=== PATIENT | female | born 1975 | race Caucasian/White ===

== ENCOUNTER 2019-11-02 18:33 | Emergency (ER) | payer OTHER, SELFPAY ==
[2019-11-02 18:35] VITALS: BP 155/91; PULSE 91; RESP 16; TEMP 37.3; O2SAT 100; BMI 76.1
--- NOTE | 2019-11-02 18:59 | EKG12_ITS ---
Test Reason : SUICIDAL Blood Pressure : / mmHG Vent. Rate : 086 BPM Atrial Rate : 086 BPM P-R Int : 170 ms QRS Dur : 094 ms QT Int : 388 ms P-R-T Axes : 056 -17 018 degrees QTc Int : 464 ms Normal sinus rhythm Inferior infarct , age undetermined Abnormal ECG Confirmed by ISABEL MCINTYRE, PHONG ([id number]), mapping editor ESTHELA NICHOLAS ([id number]) on 11/04/2019 1:15:31 PM Referred By: MAURI Confirmed By:PHONG HALL MD
--- NOTE | 2019-11-02 18:59 | RAD_ITS ---
STUDY: X-RAY CHEST REASON FOR EXAM: Female, 44 years old. Altered mental status. TECHNIQUE: Single AP portable view of the chest. COMPARISON: Prior comparison studies are not available for review at this time. FINDINGS: The lungs are clear and expanded. There is no demonstrated pleural abnormality. Normal size heart. Normal mediastinum and hernandez. Normal visualized pulmonary arteries. Normal visualized aortic arch and descending thoracic aorta. Normal visualized thoracic spine. Normal visualized ribs, clavicles, and shoulders. There is no demonstrated abnormality of the visualized soft tissue structures of the upper abdomen. RAD/Chest 1 View (Portable) IMPRESSION: Normal x-ray examination of the chest. Electronically Signed: Hamilton Brown MD at 19:31 EDT Tel , Service support ,
--- NOTE | 2019-11-02 18:59 | CT_ITS ---
STUDY: CT BRAIN WITHOUT CONTRAST REASON FOR EXAM: Female, 44 years old. Hyperthermia RADIATION DOSAGE (If Supplied By Facility): CTDIvol = ( 44.99 ) mGy, DLP = ( 745.49 ) mGycm TECHNIQUE: Transaxial CT imaging of the brain was performed without administration of intravenous contrast material. Individualized dose optimization techniques were used for this CT. COMPARISON: No relevant priors. FINDINGS: Normal soft tissue structures. Normal calvarium. Focal calcification of the falx. Normal size ventricles and extra-axial spaces for the patient''s age. Normal white matter tracts of the cerebral hemispheres. Normal basal ganglia and thalami. Normal brainstem. Normal cerebellum. There is no intracranial hemorrhage. There are no findings of an acute ischemic infarction. Normal visualized paranasal sinuses. CT/Brain/Head without Contrast IMPRESSION: Normal unenhanced CT scan of the brain. Electronically Signed: Hamilton Brown MD at 19:42 EDT Tel , Service support ,
--- NOTE | 2019-11-02 19:01 | ED.DCSUM_ITS ---
History of Present Illness Chief Complaint: Suicidal Informant: Patient Narrative: Patient is a 44-year-old female who presents to the emergency department for altered mental status possible suicidal ideation. She was found in a hot car that she apparently was in for 4 to 5 hours. When asked she does this is a suicidal attempt suicidal she said that she does not know. Patient is noncooperative and keeps asking why she is here. She does answer questions appropriately. She is denying any physical symptoms including any headache, vision changes. No chest pain or shortness of breath. No abdominal pain or nausea/vomiting. No weakness or loss of sensation in extremities. She denies any past medical problems. She states she does not take any medications. She is denying any alcohol or drug use. Throughout exam she keeps asking why she is here. She also says that she cannot be aware. She does appear confused. Per the nursing report she had a friend who recently committed suicide. She has a history of psychiatric disorders although she is denying this. Patient keeps repeating I do not know to most questions. Her is on the way to the hospital. Past Medical History - Allergies and Home Meds Allergies/Adverse Reactions: Allergies No Known Allergies Allergy (Verified 08/11/15 11:38) Primary Care Physician: Mila Leigh MD [Primary Care Provider] - Prior records reviewed: Yes Past Medical History: - - Patient denies any Surgical History: - - Denies Smoking Status: Never smoker Alcohol: None - Denies Drugs: None - Denies Review of Systems All systems negative except as indicated General: Denies: Chills, Fever, Sweats Eyes: Denies: Visual changes - bilaterally, Diplopia ENT: Denies: Rhinorrhea, Sore throat Cardiovascular: Denies: Chest pain, Palpitations Respiratory: Denies: Dyspnea, Cough, Dyspnea on exertion Gastrointestinal: Denies: Abdominal pain, Nausea, Vomiting Genitourinary: Denies: Dysuria, Hematuria, Frequency Musculoskeletal: Denies: Back pain, Extremity Pain Skin: Denies: Rash, Wounds Neurological: Denies: Headache, Weakness, Numbness Physical Exam Vital Signs/Narrative: Vital Signs Temp Pulse Resp BP Pulse Ox 11/02/19 18:35 99.1 F 91 16 155/91 H 100 Inital Vital Signs reviewed: Yes General: Well nourished, Well developed, No Acute Distress Head: Normocephalic, Atraumatic Eyes: Perrl, EOMI ENT: Moist mucous membranes, No rhinorrhea Neck: Supple, Nontender Cardiovascular: Regular rate, Regular rhythm, No murmurs Respiratory: No distress, CTA bilaterally, Chest nontender Abdomen: Soft, Nontender, Nondistended, Normal bowel sounds Back: Nontender, Normal Inspection Extremities: Nontender, No edema Skin: Normal color, No rash Neurological: Alert, Cranial nerves II-XII grossly intact, Normal Strength, Nor mal Sensation, Confused, - - Patient knows her name and date of . She does not know where she is at. She does not know the date.. Negative for: Left side facial droop, Right side facial droop Psychological: Agitated - Patient is moving around in bed gets agitated stating that she cannot be here. Diagnostic/Tx/Re-eval - EKG Initial EKG Interpretation: - - Rate of 86 bpm in sinus rhythm. Normal intervals, QTC of 464. Normal axis. No ST elevations or depressions appreciated. No T wave abnormalities. - Medical Decision Making Patient is a 44-year-old female who presents the emerge department for altered mental status. She is found in a hot car for what was thought to be 4 to 5 hours. It is unsure if this was a suicide attempt patient is confused. Will obtain basic lab work along with CT scan of her head. Besides the confusion physical exam is benign. Vital signs within normal limits upon arrival. Patient's lab work did not reveal any significant acute abnormality. CT scan of her head did not reveal any acute intracranial abnormality. Do not have any medical reason to explain what is causing her current behavior. She is still acting confused and asking why she is here and she repeats out no to most questions. I did call and discussed the case with the hospitalist does not feel that this is any medical issue and sounds all psychiatric. I did have the social services analyst evaluate the patient and will plan on transferring her to a [facility] for further evaluation and management. This was made aware to the . At this time currently pending placement. Signing out to oncoming attending. ED Disposition - Plan for ED Patient: Disposition: Psychiatric Hospital or Unit Diagnosis: Acute psychosis, Altered mental state Referrals: Mila Leigh MD [Primary Care Provider] -
--- NOTE | 2019-11-02 19:10 | ED.RN ---
per md no sitter needed at this time.
[2019-11-02 19:24] LABS: Absolute Lymphocyte Count 2.61 X10^3/uL (0.83-4.51); Absolute Neutrophil Count 4.8 X10^3/uL (2.0-7.7); Basophil# 0.03 X10^3/uL; Basophil% 0.4 % (0-1); Eosinophil# 0.08 X10^3/uL; Hematocrit 42.4 % (37-47); Hemoglobin 14.4 g/dL (12.0-15.0); Lymphocyte # 2.61 X10^3/ul (4.0); Lymphocyte % 32.2 % (19-41); Mean Corpuscular Hgb 29.3 pg (27.0-32.0); Mean Corpuscular Volume 86.2 fL (81-99); Mean Platelet Vol. 9.6 fl (6.2-12.0); Monocyte# 0.56 X10^3/uL; Monocyte% 6.9 % (0-10); NRBC Flagged by Analyzer 0 % (0-5); Neutrophil # 4.81 X10^3/uL (2.7-7.7); Neutrophil % 59.4 % (47-70); Platelet Count 313 K/mm3 (150-450); RBC Distribution Width CV 12.7 % (11.6-14.6); RBC Distribution Width SD 39.3 fl (35.1-43.9); Red Blood Count 4.92 M/mm3 (4.2-5.4); White Blood Count 8.1 K/mm3 (4.4-11.0)
[2019-11-02 19:28] LABS: Internal QC Validated? YES +Cl - CLEAR BKGD; Pregnancy, Serum, hCG Quali. NEGATIVE Negative
[2019-11-02 19:41] LABS: ALB/GLOB Ratio 1.3 RATIO (0.9-2.4); AST(SGOT) 24 U/L (15-37); Alanine Aminotransfer ALT/SGPT 34 U/L (13-56); Alkaline Phosphatase 77 U/L (45-117); Anion Gap 10 (5-15); BUN 10 mg/dL (7-18); BUN/Creat Ratio 11.3 RATIO (10-20); Chloride 108 mmol/L (98-107); Creatinine, Serum 0.89 mg/dL (0.55-1.02); EST Glomerular Filtration Rate 73 mL/min (>60); Est Glom Filt Rate - Afr Amer 88 mL/min (>60); Estimated Creatinine Clearance 65.34 ml/min; Globulin 3.1 g/dL (2.2-4.2); Glucose 105 mg/dL (74-106); Potassium 3.6 mmol/L (3.5-5.1); Protein, Total 7.1 g/dL (6.4-8.2); Sodium Level 140 mmol/L (136-145); Thyroid Stim Hormone (TSH) 1.19 uIU/mL (0.358-3.74)
[2019-11-02 19:48] LABS: Mucous, Urine 0 SEEN /hpf (<or=2+); White Blood Cells 0 SEEN /hpf (0-5)
--- NOTE | 2019-11-02 20:00 | CM.ED ---
SOCIAL WORK Informant: Dr. Lawler, nursing Reason for Consult: Suicidal ideation, [place] T[place] Slipped by [employer] Marital Status: Living Situation: Home with and 2 daughters Support/Resources: Employment History: I think I'm a teacher. Mental Health Treatment/History: Patient admits to history of depression. Patient reports takes medication, but states can't remember when asked what medications. Abuse Issues: Patient denies any history of emotional, physical or sexual abuse. Triggers/Stressors: I don't know Coping Skills: I don't know. Substance Abuse History: Patient denies any substance use. Risk to Self/Others: Suicidal: Patient denies any suicidal ideation, plan or intent. Patient asking why am I here. Discussed [place] Slip and informed patient [facility] [employer] [facility] [employer] found patient locked in a hot car with windows rolled up and car was not running. Informed patient per [place] Slip, she had texted her daughters and [place] and I love you. Patient reports I don't remember doing any of that. Homicidal: Patient denies any homicidal ideation. Mental Status Exam: Orientation: Alert to person only. Patient unable to recall where she is, what year it is, or what happened this day. Memory: Poor Appearance/General Behavior: disheveled, calm Mood/Affect: Flat, anxious Communication Pattern: Responds to questions, however, reports she can't remember or answers with I don't know. Thought Process: Patient denies any delusions or hallucinations Judgment: Poor Assessment: Met with patient in room. Introduced role and reason for referral. Patient unable to recall what brought her to hospital and continues to state, I don't know why I am here. What happened??? This worker explained [place] Slip and how patient was found multiple times to patient. Patient denies any suicidal ideation, plan or intent. Patient did not recall going to parking lot at [employer] or texting family. Patient denies any history of substance abuse. Patient continued to report I don't know to most questions. Informed patient is in waiting room. Patient gave permission for this worker to speak with and requests come to room. Conversation with patient's : reports on , patient took her 2 daughters to [employer] in [place] and once home became upset with their 18 year old daughter. stated my daughter walked away from her and something triggered her. Patient threw rolls of toilet paper and had erratic behavior, yelling and screaming at family. reports on Monday, patient went to her sister's home and did not return home until midnight. believes patient's behavior to be normal on Monday. states today, they had a conversation about their daughters and patient's behavior and she left the home around 4pm. denies any prior history of suicidal ideation for patient. states patient's family has history of depression and states patient's mother, patient, and one of his daughters are on antidepressants. very concerned for patient's behaviors and states, this is just not normal for her. discussed the recent completed suicide by patient's former colleague and states does not know if that has anything to do with it. Collaboration with Dr. Lawler. Work up being completed at this time. Anticipate hospitalization for stabilization. Awaiting lab results. Kendall Jose, ASSOCIATE EMBALMER/FUNERAL DIRECTOR, PAUNCH TRIMMER
[2019-11-02 20:09] VITALS: BP 162/97; PULSE 94; RESP 16; O2SAT 96
[2019-11-02 20:15] LABS: Color, Urine Yellow (Yellow); Glucose, Dipstick Normal (Normal); Ketone-Dipstick 50 mg/dl (Negative); Leukocyte Esterase-Dipstick Negative /ul (Negative); Nitrite-Dipstick Negative (Negative); Occult Blood-Urine 10 /ul (Negative); Protein-Dipstick Negative (Negative); Specific Gravity, Urine 1.015 (1.002-1.030); Urine Bilirubin Dipstick Negative (Negative); Urine Clarity Clear (Clear); Urine Urobilinogen Normal (Normal)
[2019-11-02 20:26] LABS: Bacteria 2+ /hpf (None Seen); Squamous Epithelial Cells - UA 5-10 SEEN /hpf (5-10)
[2019-11-02 20:28] LABS: Red Blood Cells-Urine 0-5 SEEN /hpf (0-5)
--- NOTE | 2019-11-02 20:30 | CM.ED ---
SOCIAL WORK Met with patient and in room. Patient remain confused on what happened that brought her to hospital. inquiring about CT and states it's just not normal for her not to remember. and this worker discussed events that brought patient to hospital. Patient continues to state, I don't remember any of that. Dr. Lawler updated patient's in room requesting update on results once received. Kendall Jose, SENIOR NUCLEAR MEDICINE TECHNOLOGIST, AGRONOMY INTERNSHIP
[2019-11-02 20:31] LABS: Amorphous Sediment R
[2019-11-02 21:17] LABS: Amphetamine Urine VISTA NEGATIVE (<1000 ng/mL); Barbiturate Urine VISTA NEGATIVE (< 200 ng/mL); Benzodiazepine Urine VISTA NEGATIVE (< 200 ng/mL); Cocaine Urine VISTA NEGATIVE (< 300 ng/mL); Ecstacy Urine VISTA NEGATIVE (< 500 ng/mL); Methadone Urine VISTA NEGATIVE (< 300 ng/mL); PCP Urine VISTA NEGATIVE (< 25 ng/mL); THC Urine VISTA NEGATIVE (< 50 ng/mL); Vista UDS pH Range 6
[2019-11-02 21:42] LABS: Acetaminophen (Tylenol) Level < 2.0 ug/mL (10.0-30.0); Salicylate < 1.7 mg/dL (2.8-20.0)
--- NOTE | 2019-11-02 21:50 | CM.ED ---
SOCIAL WORK Collaboration with Dr. Lawler. Patient is medically cleared. Recommending inpatient psych hospitalization for stabilization. Updated patient and . in agreement with plan. Call to [facility] who reports do have bed available. Reviewed referral. Referral faxed at this time. Kendall Jose, BODS DEVELOPER, MANAGER VAN
[2019-11-02 22:30] VITALS: BP 162/103; PULSE 88; RESP 15; O2SAT 93
[2019-11-02 23:00] VITALS: BP 147/82; PULSE 81; RESP 15; O2SAT 94
--- NOTE | 2019-11-02 23:00 | CM.ED ---
SOCIAL WORK Call to [facility] to check on status of referral. Per worker, still reviewing referral. Requested intake to call main ED line to update on acceptance or denial. Staff, patient and updated. Kendall Jose, COMMUNITY ASSOCIATE, GASOLINE CATALYST OPERATOR
[2019-11-03] VITALS (8 sets, daily range): BP systolic 122–159; BP diastolic 72–104; PULSE 72–79; RESP 15–18; TEMP 36.2–36.9; O2SAT 92–97
[2019-11-03] MEDS: Acetaminophen 500 MG Tablet 1000 MG PO (03:26)
== END 2019-11-03 11:28 ==
PROVIDERS: Emergency Provider Emergency Medicine; PCP Internal Medicine
DX: F23 Brief psychotic disorder (principal); R41.82 Altered mental status, unspecified
CPT/HCPCS: 70450; 71045; 80053; 80307; 80320; 80329; 81001; 84443; 84703; 85025; 93005; 99285; A4216; G0480

== ENCOUNTER 2021-04-06 12:48 | Emergency (ER) | payer OTHER, SELFPAY ==
[2021-04-06 12:49] VITALS: BP 159/100; PULSE 91; RESP 16; TEMP 36.8; O2SAT 95; BMI 31.8
--- NOTE | 2021-04-06 15:12 | EX.ED.DYSGE1 ---
HPI History of Present Illness Chief Complaint: Rash Detail of Chief Complaint: Painful red rash right upper extremity Informant: patient and spouse/S.O. 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 Rash is erythematous with pustules and vesicles along the C6 dermatome right upper extremity. There is no neurologic symptoms. She has no other complaints. Prior similar symptoms: No Recent Illness/Hospitalization: No PFSH PFSH Medical History no medical history Home Medications ascorbic acid (vitamin C) [Vitamin C] 500 mg PO DAILY@0800 08/11/15 [History Last Taken Unknown] bupropion HCl 300 mg PO DAILY 08/11/15 [History Last Taken Unknown] venlafaxine 37.5 mg PO DAILY 08/11/15 [History Last Taken Unknown] trazodone 100 mg PO QHS 08/13/15 [History Last Taken 08/11/15 21:00] acyclovir 800 mg PO 5X/DAY #35 tablet 04/06/21 [Rx Last Taken Unknown] doxycycline monohydrate 100 mg PO BID #14 capsule 04/06/21 [Rx Last Taken Unknown] gabapentin 100 mg PO .As written #180 cap 04/06/21 [Rx Last Taken Unknown] oxycodone-acetaminophen 1 tab PO Q6H PRN PRN 5 Days #20 tablet 04/06/21 [Rx Last Taken Unknown] Allergy/AdvReac Type Severity Reaction Status Date / Time No Known Allergies Allergy Verified 04/06/21 12:49 Social History (Updated 04/06/21 @ 15:[address] Rao Cano MD) household members: spouse Smoking Status: Never smoker substance use type: does not use ROS ROS ED Constitutional Constitutional ED: Denies chills, fever(s), subjective, sweats or weight loss Eyes Eyes: Denies blurry vision, change in vision or diplopia ENT ENT ED: Denies ear pain, rhinorrhea or sore throat Cardiovascular Cardiovascular: Denies chest pain or palpitations Respiratory/Chest Respiratory/Chest: Denies cough or dyspnea Musculoskeletal Musculoskeletal: Denies arthralgias, back pain, myalgias or neck pain Integumentary Reports rash; Denies abscess or Abrasions Neurologic Neurologic: Denies headache(s) or paresthesias EXAM Physical Exam Const Vital Signs: 04/06/21 12:49 Temperature 98.3 F Temperature Source Temporal Pulse Rate 91 Respiratory Rate 16 Blood Pressure 159/100 H Blood Pressure Mean 119 Pulse Ox 95 Oxygen Delivery Method Room Air Positive well nourished and well developed General Appearance ED: well developed; Negative for NAD or pallor HEENT Reports moist mucous membranes Negative for trauma or tenderness Eyes PERRL and EOMs intact bilaterally General Eye ED: Negative for pale conjunctiva or scleral icterus Neck no lymphadenopathy, supple and no JVD Resp normal respiratory effort Cardio regular rate and regular rhythm Extremity Negative for normal to inspection General Extremety ED: Yes tenderness; Negative for edema General Extremity: Negative for edema Neuro oriented x3, CN's II-XII intact bilaterally and no sensory deficits noted Sensorium / Orientation: alert Motor Exam: strength 5/5 throughout Psych mental status grossly normal Skin No no rashes or lesions noted, No no wounds and skin turgor normal Skin Narrative: Patient has an erythematous rash with vesicles, blisters and pustules along the see 6 dermatome right upper extremity. There may be a secondary infection where there is areas of excoriation. Patient has hypersensitivity to light touch. General Skin Exam: Negative for jaundice or pallor Rashes: rashes noted MDM MDM MDM Narrative Medical decision making narrative: Patient has painful rash C6 dermatome consistent with shingles. Initially there was concern for contact dermatitis however the rash is not pruritic. There is an area of erythema with induration suspect secondary infection. Will treat with antibiotic as well as antiviral, gabapentin and opiate analgesia. Discharge Plan Triage Chief Complaint: Rash ED Provider: Rao Cano Dx/Rx/DC Orders Clinical Impression: Shingles rash, Acute herpes zoster neuropathy, Cellulitis of arm, right Prescriptions: New acyclovir 800 mg tablet 800 mg PO 5X/DAY Qty: 35 RF: 0 oxycodone-acetaminophen [oxycodone-acetaminophen] 1 TABLET tablet 1 tab PO Q6H PRN PRN (Reason: pain) 5 Days Qty: 20 RF: 0 doxycycline monohydrate 100 MG capsule 100 mg PO BID Qty: 14 RF: 0 gabapentin 100 mg capsule 100 mg PO .As written Qty: 180 RF: 0 No Action ascorbic acid (vitamin C) [Vitamin C] 500 MG tablet 500 mg PO DAILY@0800 RF: 0 venlafaxine 37.5 MG tablet 37.5 mg PO DAILY RF: 0 bupropion HCl 300 MG tablet extended release 24 hr 300 mg PO DAILY RF: 0 trazodone 100 MG tablet 100 mg PO QHS RF: 0 Primary Care Provider: Cole Medellin Referrals: Cole Medellin MD [Primary Care Provider] - Disposition Disposition: Home, Self Care
[2021-04-06] MEDS: Doxycycline 100 MG CAPSULE PO (15:32)
[2021-04-06] MEDS: Acyclovir 800 MG Tablet PO (15:37)
[2021-04-06] MEDS: Gabapentin 100 MG Capsule PO (15:37)
== END 2021-04-06 15:37 | disposition home or self-care (01) ==
PROVIDERS: Emergency Provider Emergency Medicine; PCP Family Medicine
DX: B02.9 Zoster without complications (principal); B02.29 Other postherpetic nervous system involvement; L03.113 Cellulitis of right upper limb
CPT/HCPCS: 99283

== ENCOUNTER 2022-04-03 13:05 | Emergency (ER) | payer OTHER, SELFPAY ==
[2022-04-03 13:06] VITALS: BP 195/101; PULSE 71; RESP 18; TEMP 36; O2SAT 98; BMI 35.2
[2022-04-03 13:08] VITALS: BP 178/101
--- NOTE | 2022-04-03 13:17 | ED.VIS.DYS ---
HPI <KOJO Roman - Last Filed: 04/03/22 14:00> History of Present Illness Chief Complaint: Shortness of Breath Narrative Narrative: 46-year-old female with PMH of HTN presents with 2 days of shortness of breath and palpitations. She first noticed feeling winded when walking to the bathroom but now feels short of breath pretty consistently. There is no chest pain, nausea or vomiting, or diaphoresis. No fever or cough but she does generally feel rundown. She states her blood pressure has been high since September [address] Medellin is prescribing metoprolol 100 mg and added lisinopril 20 mg a month ago with no improvement. PFSH <KOJO Roman - Last Filed: 04/03/22 14:00> PFSH Home Medications ascorbic acid (vitamin C) 500 mg tablet (Vitamin C) 500 mg PO DAILY@0800 08/11/15 [History Last Taken Unknown] bupropion HCl 300 mg 24 hr tablet, extended release 300 mg PO DAILY 08/11/15 [History Last Taken Unknown] venlafaxine 37.5 mg tablet 37.5 mg PO DAILY 08/11/15 [History Last Taken Unknown] trazodone 100 mg tablet 100 mg PO QHS 08/13/15 [History Last Taken 08/11/15 21:00] acyclovir 800 mg tablet 800 mg PO 5X/DAY #35 TABLETS 04/06/21 [Rx Last Taken Unknown] doxycycline monohydrate 100 mg capsule 100 mg PO BID #14 CAPSULES 04/06/21 [Rx Last Taken Unknown] gabapentin 100 mg capsule 100 mg PO .As written Neuropathic pain #180 caps 04/06/21 [Rx Last Taken Unknown] oxycodone-acetaminophen 5 mg-325 mg tablet 1 tab PO Q6H PRN PRN pain 5 days #20 TABLETS 04/06/21 [Rx Last Taken Unknown] Allergy/AdvReac Type Severity Reaction Status Date / Time No Known Allergies Allergy Verified 04/03/22 13:07 Social History (Updated 04/06/21 @ 15:[address] Rao Cano MD) household members: spouse Smoking Status: Never smoker substance use type: does not use ROS <KOJO Roman - Last Filed: 04/03/22 14:00> ROS ED ROS Narrative Constitutional: Negative for fever, chills, malaise. Eyes: Negative for visual change. ENT: Negative for sore throat, ear pain, rhinorrhea. CVS: Positive for palpitations. Negative for chest pain, syncope. Respiratory: Positive for shortness of breath. Negative for cough, orthopnea. GI: Negative for abdominal pain, nausea, vomiting, diarrhea, constipation, melena, hematochezia. : Negative for dysuria, hematuria or frequency. Neuro: Negative for headache, motor/sensory dysfunction. Skin: Negative for rash, abscess, or wound. Musc: Negative for joint pain, swelling, trauma. Heme: Negative for easy bruising, bleeding, lymphadenopathy. EXAM <KOJO Roman - Last Filed: 04/03/22 14:00> Physical Exam Narrative Exam Narrative: CONST: Patient sitting in no acute distress. EYES: Normal inspection. ENT: Normal inspection, moist mucous membranes. NECK: Normal inspection. No JVD or retractions. RESP: No respiratory distress, CTAB. CVS: Regular rate and rhythm, no murmur, no gallop. ABD: Soft and nontender, no guarding or rebound, nondistended. SKIN: Color normal, no rash, warm, dry, intact. EXTREMITIES: Normal appearance, no pedal edema. NEURO: Oriented x4. PSYCH: Normal affect. Const Vital Signs: 04/03/22 13:06 04/03/22 13:08 Temperature 96.8 F L Temperature Source Temporal Pulse Rate 71 Respiratory Rate 18 Blood Pressure 195/101 H 178/101 H Blood Pressure Mean 132 126 Pulse Ox 98 Oxygen Delivery Method Room Air <Dr. Sushil Lamas MD - Last Filed: 04/03/22 13:38> Physical Exam Const Vital Signs: 04/03/22 13:06 04/03/22 13:08 Temperature 96.8 F L Temperature Source Temporal Pulse Rate 71 Respiratory Rate 18 Blood Pressure 195/101 H 178/101 H Blood Pressure Mean 132 126 Pulse Ox 98 Oxygen Delivery Method Room Air MDM <KOJO Roman - Last Filed: 04/03/22 14:00> [facility] MDM Narrative Medical decision making narrative: KOJO note: Patient presents with 2 days of mild dyspnea and palpitations. No chest pain. She appears well and nontoxic. BP is 195/101, otherwise normal. This is a chronic issue that is being treated with metoprolol and lisinopril. Did come down to 178/101 here. Her medical exam is unremarkable. EKG is sinus rhythm with no ischemia. Basic labs are unremarkable. Troponin is 6 and with no chest pain and normal EKG this rules out ACS. She is PERC negative. Patient was counseled to keep a daily BP log and follow-up with her primary care. Return to the ER if symptoms worsen. I have personally performed a face to face assessment of the patient and have reviewed the ANGELINE Note. I performed a substantive portion of the visit including all aspects of the following. My asher findings include: History is [46-year-old female complaining of mild dyspnea last 2 days. No chest pain. No history of DVT or PE risk factors. History of hypertension on both a beta-stefano and lisinopril. Blood pressures been poorly controlled at home. No chest pain. No fever. No hemoptysis. No leg pain or swelling. Being evaluated with our physician executive administrative assistant.] Exam is [middle-aged female no acute distress. Vital signs stable afebrile. She does have an elevated blood pressure of 195/101. When I am in the room its 168/100. Pulse ox 98% on room air no hypoxia. H EENT exam unremarkable. Neck nontender no JVD. Lungs clear to auscultation bilaterally. Heart regular rhythm no murmur. No rales, rhonchi or wheezing. Abdomen soft nontender. Moving all 4 extremities. Calves are nontender without edema or cords. Neurologically she is awake and alert with no focal motor deficits.] Medical Decision Making [acute on chronic hypertension. Dyspnea will be worked up. Clinically I do not think this is cardiac. I do not think it is pneumonia or viral syndrome. If the evaluation and work-up is unremarkable she will be discharged home. Log your blood pressures and follow-up with your physician for blood pressure medication changes in either the dosages or the medication.] Other additions or changes: [None] Lab Data Attestation: I reviewed the patient's lab results. Labs: Laboratory Results - last 24 hr 04/03/22 04/03/22 13:15 13:15 WBC 7.3 RBC 5.08 Hgb 14.7 Hct 44.2 MCV 87.0 MCH 28.9 MCHC 33.3 RDW Std Deviation 40.6 RDW Coeff of Mark 12.9 Plt Count 250 MPV 9.6 Immature Gran % (Auto) 0.300 Neut % (Auto) 50.7 Lymph % (Auto) 41.5 H Greer % (Auto) 5.1 Eos % (Auto) 1.8 Baso % (Auto) 0.6 Absolute Neuts (auto) 3.7 Absolute Lymphs (auto) 3.01 Nucleated RBC % 0 Sodium 139 Potassium 3.4 L Chloride 109 H Carbon Dioxide 24.0 Anion Gap 6 BUN 12 Creatinine 0.89 Estim Creat Clear Calc 63.95 Est GFR (MDRD) Af Amer 87 Est GFR (MDRD) Non-Af 72 BUN/Creatinine Ratio 13.5 Glucose 134 H Calcium 8.7 Troponin I High Sens 6 Radiography Diagnostic Testing: Clinical Impression(s) from Imaging Studies Chest X-Ray 04/03/22 13:33 IMPRESSION: Linear atelectasis right lung base. Otherwise unremarkable chest radiograph. Electronically Signed: Ty Menjivar MD at 13:51 EST Reading Location ID and State: [address] [place] [address] Tel , Service support , EKG Initial EKG: Attestation: I personally reviewed and interpreted this EKG as follows: Interpretation: Sinus Rhythm and No Acute Injury Pattern Comments: Normal sinus rhythm at 69 bpm, normal intervals, no ischemic changes <Dr. Sushil Lamas MD - Last Filed: 04/03/22 13:38> [facility] MDM Narrative Medical decision making narrative: I have personally performed a face to face assessment of the patient and have reviewed the ANGELINE Note. I performed a substantive portion of the visit including all aspects of the following. My asher findings include: History is [46-year-old female complaining of mild dyspnea last 2 days. No chest pain. No history of DVT or PE risk factors. History of hypertension on both a beta-stefano and lisinopril. Blood pressures been poorly controlled at home. No chest pain. No fever. No hemoptysis. No leg pain or swelling. Being evaluated with our physician executive administrative assistant.] Exam is [middle-aged female no acute distress. Vital signs stable afebrile. She does have an elevated blood pressure of 195/101. When I am in the room its 168/100. Pulse ox 98% on room air no hypoxia. H EENT exam unremarkable. Neck nontender no JVD. Lungs clear to auscultation bilaterally. Heart regular rhythm no murmur. No rales, rhonchi or wheezing. Abdomen soft nontender. Moving all 4 extremities. Calves are nontender without edema or cords. Neurologically she is awake and alert with no focal motor deficits.] Medical Decision Making [acute on chronic hypertension. Dyspnea will be worked up. Clinically I do not think this is cardiac. I do not think it is pneumonia or viral syndrome. If the evaluation and work-up is unremarkable she will be discharged home. Log your blood pressures and follow-up with your physician for blood pressure medication changes in either the dosages or the medication.] Other additions or changes: [None] Lab Data Attestation: I reviewed the patient's lab results. Lab results narrative: CBC normal. White count of 7. H&H 14 and 44. Labs: Laboratory Results - last 24 hr 04/03/22 04/03/22 13:15 13:15 WBC 7.3 RBC 5.08 Hgb 14.7 Hct 44.2 MCV 87.0 MCH 28.9 MCHC 33.3 RDW Std Deviation 40.6 RDW Coeff of Mark 12.9 Plt Count 250 MPV 9.6 Immature Gran % (Auto) 0.300 Neut % (Auto) 50.7 Lymph % (Auto) 41.5 H Greer % (Auto) 5.1 Eos % (Auto) 1.8 Baso % (Auto) 0.6 Absolute Neuts (auto) 3.7 Absolute Lymphs (auto) 3.01 Nucleated RBC % 0 Sodium 139 Potassium 3.4 L Chloride 109 H Carbon Dioxide 24.0 Anion Gap 6 BUN 12 Creatinine 0.89 Estim Creat Clear Calc 63.95 Est GFR (MDRD) Af Amer 87 Est GFR (MDRD) Non-Af 72 BUN/Creatinine Ratio 13.5 Glucose 134 H Calcium 8.7 Troponin I High Sens 6 Radiography Chest X-Ray - ED: 1 View, Read by ED Physician, Heart, Lungs, Mediastinum, Bony Structures, No Acute Disease and Chronic Changes Diagnostic Testing: Clinical Impression(s) from Imaging Studies Chest X-Ray 04/03/22 13:33 IMPRESSION: Linear atelectasis right lung base. Otherwise unremarkable chest radiograph. Electronically Signed: Ty Menjivar MD at 13:51 EST , Chest x-ray, 2 views, AP and lateral. Interpreted by myself shows no acute abnormality. Normal cardiac silhouette. No effusion. No infiltrate. No pneumonia. No pulmonary edema. Rhythm Strip Rhythm Strip: Sinus Rhythm Rate: 69 Ectopy: None Discharge Plan Triage Chief Complaint: Shortness of Breath ED Midlevel Provider: Sara Cerna ED Provider: Sushil Lamas Dx/Rx/DC Orders Clinical Impression: Chronic hypertension, Acute dyspnea Instructions: Blood Pressure Check Steps, ED Dyspnea Prescriptions: No Action ascorbic acid (vitamin C) [Vitamin C] 500 MG tablet 500 mg PO DAILY@0800 Label Comments: supplement venlafaxine 37.5 MG tablet 37.5 mg PO DAILY Label Comments: mood bupropion HCl 300 MG tablet extended release 24 hr 300 mg PO DAILY Label Comments: mood trazodone 100 MG tablet 100 mg PO QHS Label Comments: pain acyclovir 800 mg tablet 800 mg PO 5X/DAY Qty: 35 0RF oxycodone-acetaminophen [oxycodone-acetaminophen] 1 TABLET tablet 1 tab PO Q6H PRN PRN (Reason: pain) 5 Days Qty: 20 0RF doxycycline monohydrate 100 MG capsule 100 mg PO BID Qty: 14 0RF gabapentin 100 mg capsule 100 mg PO .As written Qty: 180 0RF Rx Instructions: 1 capsule 3 times daily x2 days then 2 capsules 3 times daily for 2 days and 3 tablets 3 times a day Primary Care Provider: Cole Medellin Referrals: Cole Medellin MD [Primary Care Provider] - Activity Restrictions/Additional Instructions: Please keep a log of your blood pressure at the same time each day and take this to your primary care doctor this week for a follow-up appointment. All the testing today regarding her shortness of breath look normal. Return to the ER if symptoms change or significantly worsen. Disposition Disposition: Home, Self Care
--- NOTE | 2022-04-03 13:19 | EKG12_ITS ---
Test Reason : PALP Blood Pressure : / mmHG Vent. Rate : 069 BPM Atrial Rate : 069 BPM P-R Int : 172 ms QRS Dur : 086 ms QT Int : 388 ms P-R-T Axes : 050 -23 008 degrees QTc Int : 415 ms Normal sinus rhythm Minimal voltage criteria for LVH, may be normal variant ( R in aVL ) Inferior infarct , age undetermined Abnormal ECG Confirmed by ISABEL MCINTYRE, PHONG ([id number]), market editor ESTHELA NICHOLAS ([id number]) on 04/05/2022 11:26:57 AM Referred By: Confirmed By:PHONG HALL MD
[2022-04-03 13:32] LABS: Absolute Lymphocyte Count 3.01 X10^3/uL (0.83-4.51); Absolute Neutrophil Count 3.7 X10^3/uL (2.0-7.7); Basophil# 0.04 X10^3/uL; Basophil% 0.6 % (0-1); Eosinophil# 0.13 X10^3/uL; Eosinophils% 1.8 % (0-5); Hematocrit 44.2 % (37-47); Hemoglobin 14.7 g/dL (12.0-15.0); Lymphocyte # 3.01 X10^3/ul (0.83-4.51); Lymphocyte % 41.5 % (19-41); Mean Corp Hgb Conc 33.3 g/dL (32-36); Mean Corpuscular Hgb 28.9 pg (27.0-32.0); Mean Platelet Vol. 9.6 fl (6.2-12.0); Monocyte# 0.37 X10^3/uL; Monocyte% 5.1 % (0-10); NRBC Flagged by Analyzer 0 % (0-5); Neutrophil # 3.68 X10^3/uL (2.7-7.7); Neutrophil % 50.7 % (47-70); Platelet Count 250 K/mm3 (150-450); RBC Distribution Width CV 12.9 % (11.6-14.6); RBC Distribution Width SD 40.6 fl (35.1-43.9); Red Blood Count 5.08 M/mm3 (4.2-5.4); White Blood Count 7.3 K/mm3 (4.4-11.0)
--- NOTE | 2022-04-03 13:33 | RAD_ITS ---
EXAM: XR CHEST, 2 VIEWS CLINICAL INDICATION: dyspnea TECHNIQUE: Frontal and lateral views of the chest. This report was created using [employer] report generation technology. COMPARISON: XR Chest dated 11/02/2019 FINDINGS: LUNGS AND PLEURAL SPACES: Linear atelectasis noted at the right lung base. No pneumothorax. No effusion. HEART: Normal heart size. MEDIASTINUM: No mediastinal or hilar mass. BONES/JOINTS: No acute abnormality. SOFT TISSUES: Normal. RAD/Chest PA and Lateral IMPRESSION: Linear atelectasis right lung base. Otherwise unremarkable chest radiograph. Electronically Signed: Ty Menjivar MD at 13:51 EST ,
[2022-04-03 13:48] LABS: Anion Gap 6 (5-15); BUN 12 mg/dL (7-18); BUN/Creat Ratio 13.5 RATIO (10-20); Calcium,Total 8.7 mg/dL (8.5-10.1); Chloride 109 mmol/L (98-107); Creatinine, Serum 0.89 mg/dL (0.55-1.02); EST Glomerular Filtration Rate 72 mL/min (>60); Est Glom Filt Rate - Afr Amer 87 mL/min (>60); Estimated Creatinine Clearance 63.95 ml/min; Glucose 134 mg/dL (74-106); Potassium 3.4 mmol/L (3.5-5.1); Sodium Level 139 mmol/L (136-145); Troponin-I HS 6 pg/mL (3.0-54.0)
[2022-04-03 14:02] VITALS: BP 166/98; PULSE 89; O2SAT 99
== END 2022-04-03 14:07 | disposition home or self-care (01) ==
PROVIDERS: Physician Assistant; Emergency Provider Emergency Medicine; PCP Family Medicine; Visit Provider Emergency Medicine
DX: I10 Essential (primary) hypertension (principal); R00.2 Palpitations; R06.00 Dyspnea, unspecified
CPT/HCPCS: 71046; 80048; 84484; 85025; 93005; 99282; A4216

== ENCOUNTER 2022-07-01 17:05 | Emergency (ER) | payer OTHER, SELFPAY ==
[2022-07-01 17:06] VITALS: BP 172/87; PULSE 69; RESP 19; TEMP 36.1; O2SAT 97; BMI 36.8
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
== END 2022-07-01 18:57 | disposition home or self-care (01) ==
PROVIDERS: Emergency Provider Emergency Medicine; PCP Family Medicine; Visit Provider Emergency Medicine
DX: S16.1XXA Strain of muscle, fascia and tendon at neck level, initial encounter (principal); S39.012A Strain of muscle, fascia and tendon of lower back, initial encounter; G47.33 Obstructive sleep apnea (adult) (pediatric); V49.9XXA Car occupant (driver) (passenger) injured in unspecified traffic accident, initial encounter
CPT/HCPCS: 72125; 99282

== ENCOUNTER → 2022-07-08 | Outpatient (CLI) | payer OTHER, SELFPAY ==
--- NOTE | 2022-07-08 06:15 | RDU_ITS ---
Reason For Study: HTN Right Renal Artery Left Renal Artery Right renal artery ostium 121/35 Left renal artery ostium 92/26 RSV/EDV. PSV/EDV. Right renal artery proximal 116/39 Left renal artery proximal PSV/EDV PSV/EDV. 92/28 . Right renal artery mid 123/44 Left renal artery mid 131/46 PSV/EDV. PSV/EDV . Right renal artery distal 142/46 Left renal artery distal 125/46 PSV/EDV. PSV/EDV. Right RAR 1.67. Left RAR 1.54. Right Renal Parenchyma Left Renal Parenchyma Upper Pole Medula 28/11 PSV/EDV. Left upper pole medulla 26/11 Right upper pole medulla EDR 0.39 . PSV/EDV . Right upper pole medulla R.I. Left upper pole medulla EDR 0.42 . 0.61 . Left upper pole medulla R.I. 0.57 . Upper Darin Cortx 18/8 PSV/EDV. UP Cortex 26/10 PSV/EDV. Right upper pole cortex EDR 0.44 . Left upper pole cortex EDR 0.38 . Right upper pole cortex R.I. 0.53 . Left upper pole cortex R.I. 0.60 . Right lower Pole medulla 25/12 Left lower Pole medulla 23/10 PSV/EDV . PSV/EDV . Right lower pole medulla EDR 0.48 . Left lower pole medulla EDR 0.43 . Right lower pole medulla R.I. Left lower pole medulla R.I. 0.56 . 0.51 . Lower Pole Cortx 18/8 PSV/EDV. Lower Pole Cortex 16/7 PSV/EDV. Left lower pole cortex EDR 0.44 . Right lower pole cortex EDR 0.44 . Left lower pole cortex R.I. 0.52 . Right lower pole cortex R.I. 0.55 . Left Renal Hilar Right Renal Hilar LT Hilar avg 60/23 PSV/EDV . Right Hilar avg 100/40 PSV/EDV. Left hilar acceleration time 40 Right hilar acceleration time 30 m/sec. m/sec. Left Renal Dimensions Right Renal Dimensions Left kidney size 10.86 cm . Right kidney size 9.38 cm . Left cortical dimension 1.07 cm . Right cortical dimension 1.43 cm . Aorta Proximal abdominal aorta 1.73cm x 1.81 cm . Proximal abdominal aorta peak systolic velocity is 85 cm/sec . Distal abdominal aorta 1.59cm x 1.77 cm . Distal abdominal aorta peak systolic velocity is 110 cm/sec . VL/Renal Artery Duplex Ultrasound Interpretation Summary Right renal artery patent with normal velocities, no evidence of stenosis. Left renal artery patent with normal velocities, no evidence of stenosis. Right renal vein patent Left renal vein patent Right kidney normal in size Left kidney normal in size Ordering Physician: Amor [place] Referring Physician: Cole Medellin Performed By: Betina Lind, VENKAT, RVT
[2022-07-08 08:06] LABS: Theophylline (Aminophylline) < 2.0 ug/mL (10.0-20.0)
[2022-07-08 08:17] LABS: AST(SGOT) 26 U/L (15-37); Alanine Aminotransfer ALT/SGPT 35 U/L (13-56); Albumin, Serum 3.6 g/dL (3.2-5.0); Alkaline Phosphatase 71 U/L (45-117); Bilirubin, Direct 0.13 mg/dL (0.00-0.30); Cholesterol 181 mg/dL (200); Globulin 2.8 g/dL (2.2-4.2); High Density Lipoprotein 27 mg/dL; Protein, Total 6.4 g/dL (6.4-8.2); Triglycerides 718 mg/dL
--- NOTE | 2022-07-09 14:19 | STRESSREP ---
Stress Test Report Date: [] Procedure: Exercise tolerance test/imaging study Indications: Dyspnea on exertion Consent: Per the patient Procedure: The patient exercised on a Armando protocol for 6 minutes and 30 seconds achieving a peak heart rate of 151 bpm (87% predicted maximal heart rate) with a peak blood pressure 170/100 mmHg and a peak MET capacity of 8.4 METs. The baseline ECG demonstrated normal sinus rhythm. The peak exercise ECG demonstrated no significant ischemic changes. EKG during recovery revealed no significant ischemic changes [There were no cardiac dysrhythmias pretest, during exercise, or recovery]. The functional capacity was considered normal for age. There was [no complaint of chest discomfort during exercise or recovery]. The examination was discontinued secondary to achieving target heart rate. Impression: 1. Technically adequate (percent predicted maximal heart rate greater than 85%) exercise tolerance test 2. Stress test is negative for exercise-induced EKG changes of ischemia 3. The test test is negative for exercise-induced chest pain 4. Functional capacity is normal for age 5. Nuclear images pending Myocardial perfusion imaging study: Technique: The patient was injected with 15 mCi of technetium 99m Cardiolite and subsequently rest SPECT Cardiolite nuclear imaging was obtained in the horizontal long, vertical long, and short axis views. The patient exercised on a Armando protocol. Please see above for details. The patient was injected with 44.6 mCi of technetium 99m Cardiolite and subsequently stress SPECT Cardiolite nuclear imaging was obtained in the horizontal long, vertical long, and short axis views. A gated Cardiolite study at peak stress was obtained. Interpretation: Rest and stress SPECT Cardiolite nuclear imaging status post realignment, normalization, and attenuation correction, demonstrates overall normal myocardial radioisotope uptake. The gated Cardiolite study demonstrates no significant regional wall motion abnormalities. The reported LVEF is greater than 70%. Impression: 1. There is no evidence of significant ischemia or infarction. 2. The gated Cardiolite study reports an LVEF of greater than 70%. This note was generated with [employer] software. It may contain incorrect words, spelling, and punctuation that were not noted in checking the note before signing.
== END | disposition home or self-care (01) ==
PROVIDERS: PCP Family Medicine; Referring Provider Internal Medicine Cardiovascular Disease; Visit Provider Internal Medicine Cardiovascular Disease
DX: R06.09 Other forms of dyspnea (principal); I10 Essential (primary) hypertension; E78.2 Mixed hyperlipidemia; G47.33 Obstructive sleep apnea (adult) (pediatric)
CPT/HCPCS: 36415; 78452; 80061; 80076; 80198; 93017; 93975; A9500

== ENCOUNTER → 2022-09-29 | Outpatient (CLI) | payer OTHER, SELFPAY ==
--- NOTE | 2022-09-29 15:28 | US_ITS ---
INDICATION: new mass under chin- tender EXAMINATION: Ultrasound US Head/Neck Soft Tissue TECHNIQUE: Kong scale and color doppler imaging was performed of the neck. COMPARISON: None. FINDINGS: Limited images in the area of clinical concern under the chin. Two small soft tissue nodules identified in the region of palpable abnormality, likely lymph nodes, measure 1.0 x 0.3 x 0.3 cm, and 0.9 x 0.5 x 0.6 cm. Additional similar nodule inferior to the palpable nodules, measures 0.5 x 0.3 x 0.4 cm. No collection. US/Head/Neck Soft Tissue IMPRESSION: 3 small nodules in the area of clinical concern most likely lymph nodes. Consider further imaging evaluation with CT neck and or MRI as clinically indicated for further assessment of adenopathy. Electronically Signed: Vicky Haq MD at 6:06 EDT ,
== END | disposition home or self-care (01) ==
LOC: US 15:27
PROVIDERS: PCP Family Medicine; Referring Provider Family Medicine; Visit Provider Family Medicine
DX: R22.1 Localized swelling, mass and lump, neck (principal)
CPT/HCPCS: 76536

== ENCOUNTER → 2022-10-19 | Outpatient (CLI) | payer OTHER, SELFPAY ==
--- NOTE | 2022-10-19 16:05 | CT_ITS ---
INDICATION: neck mass ( under chin ) X 1 month, patient refused to remove earrings, hypertension. EXAMINATION: CT NECK WITH CONTRAST - CT Soft Tissue Neck W/ Contrast Injection TECHNIQUE: Helically acquired images were obtained of the neck following IV contrast. A radiation dose optimization technique was used for this scan. IV Contrast dosage and agent: 100 mL Isovue-300 RADIATION DOSAGE (If Supplied By Facility): CTDIvol = ( 19.10 ) mGy, DLP = ( 553.46 ) mGycm COMPARISON: CT July 01, 2022 FINDINGS: Lung apices are clear. Mild dependent atelectasis. Normal thyroid. Common confluence] sac left common carotid artery. No aortic arch ectasia. Carotid and vertebral vessels are symmetric and normal in appearance. Imaged portions of intracranial arteries are symmetric, patent. Right posterior communicating artery is not seen. Imaged portions of brain parenchyma are unremarkable. Unremarkable orbits. No superficial scalp edema, focal fluid collection, or abnormal enhancing mass. Metallic BB noted in area of concern inferior to the anterior chin with underlying reniform 0.7 x 0.4 cm lymph node without suspicious features. No skin thickening or platysmal thickening. Scattered prominent cervical lymph nodes up to 1.1 x 0.8 cm left level 2A without necrosis. Pharyngeal tonsils are symmetric, unremarkable. Nonspecific relative fullness of the left base of tongue without distinct mass. Normal epiglottis. No prevertebral soft tissue thickening. No acute osseous finding. Mid to lower cervical predominant spondylosis with mild spinal canal and neural foraminal narrowing, not significantly changed from July 01 2022. Mastoid air cells and paranasal sinuses are clear. Metallic ear piercings are noted. CT/Soft Tissue Neck WITH Contrast IMPRESSION: 1. Small lymph node with benign reactive features inferior to the mandible correlates with area of clinical concern. 2. Nonspecific diffuse additional small cervical lymph nodes without uniquely suspicious features 3. Ill-defined relative fullness of the left base the tongue without enhancing mass of unknown significance. Consider ENT follow-up. Electronically Signed: Jordan Jane MD at 4:52 EDT ,
[2022-10-19 16:32] LABS: CREATININE FINGERSTICK < 0.9 mg/dL (0.55-1.02); EGFR FINGERSTICK > 60.0000 mL/min (>60)
== END | disposition home or self-care (01) ==
LOC: MRI 16:04
PROVIDERS: PCP Family Medicine; Referring Provider Family Medicine; Visit Provider Family Medicine
DX: R22.1 Localized swelling, mass and lump, neck (principal)
CPT/HCPCS: 70491; Q9967

== ENCOUNTER → 2022-12-30 | Outpatient (CLI) | payer OTHER, SELFPAY ==
[2022-12-30 10:21] LABS: Anion Gap 3 (5-15); BUN 10 mg/dL (7-18); BUN/Creat Ratio 10.3 RATIO (10-20); Calcium,Total 8.8 mg/dL (8.5-10.1); Chloride 107 mmol/L (98-107); Cholesterol 174 mg/dL (200); Creatinine, Serum 0.97 mg/dL (0.55-1.02); EST Glomerular Filtration Rate 65 mL/min (>60); Est Glom Filt Rate - Afr Amer 79 mL/min (>60); Glucose 102 mg/dL (74-106); High Density Lipoprotein 35 mg/dL; Potassium 4.2 mmol/L (3.5-5.1); Sodium Level 139 mmol/L (136-145); Triglycerides 285 mg/dL; Very Low Density Lipoprotein 57 mg/dL (5-40)
== END | disposition home or self-care (01) ==
LOC: MFPLAB 08:35
PROVIDERS: PCP Family Medicine; Visit Provider Family Medicine
DX: I10 Essential (primary) hypertension (principal)
CPT/HCPCS: 36415; 80048; 80061

== ENCOUNTER 2023-08-28 13:13 | Emergency (ER) | payer OTHER, SELFPAY ==
[2023-08-28 13:14] VITALS: BP 172/105; PULSE 123; RESP 20; TEMP 36.2; O2SAT 98
--- NOTE | 2023-08-28 13:41 | EKG12_ITS ---
Test Reason : PALP Blood Pressure : / mmHG Vent. Rate : 114 BPM Atrial Rate : 114 BPM P-R Int : 164 ms QRS Dur : 088 ms QT Int : 336 ms P-R-T Axes : 039 -31 030 degrees QTc Int : 463 ms Sinus tachycardia Left axis deviation Minimal voltage criteria for LVH, may be normal variant ( R in aVL ) Inferior infarct (cited on or before 11-AUG-2015) Cannot rule out Anterior infarct , age undetermined Abnormal ECG Confirmed by Francisco Coello [id number]), legal editor BLAISE MELLO ([id number]) on 08/29/2023 9:57:35 AM Referred By: LYRIC/HAYDEN Confirmed By:Francisco Coello
--- NOTE | 2023-08-28 13:41 | CT_ITS ---
STUDY: CTA CHEST REASON FOR EXAM: Female, 47 years old. Moderate to high pretest probability pulmonary emb -- Status post hysterectomy RADIATION DOSAGE (If Supplied By Facility): CTDIvol = ( 13.34 ) mGy, DLP = ( 385.32 ) mGycm TECHNIQUE: The examination was performed with the intravenous administration of IV 100mL Isovue-370. Post-processing of the angiographic images was performed, with multiplanar reformation and 3D reconstruction. Individualized dose optimization techniques were used for this CT. COMPARISON: None. FINDINGS: Normal enhancement of the main pulmonary artery and right and left pulmonary arteries. Normal enhancement of the bilateral peripheral pulmonary arteries. There is no demonstrated pulmonary embolism. Normal thoracic aorta and visualized great vessels. There is no demonstrated aortic dissection. Normal heart and pericardium. Normal mediastinum. Normal hilar regions. Normal visualized trachea and bronchi. The lungs are well expanded. There is a 4.4 mm noncalcified nodule in the peripheral anterior lateral aspect of the right lower lobe as seen on axial image #101. A similar appearing nodular density measuring 3.7 mm is seen in the anterior aspect of the right upper lobe as seen on axial image #101. Mild degree of atelectasis in the posterior aspect of the lingular segment of the left upper lobe. Mild degree of passive atelectasis at the lung bases. Normal chest wall structures. Normal osseous structures. I suspect a 1.3 cm adenoma in the left adrenal gland. Fatty infiltration of the liver. CT/CTA Chest W/WO Contrast IMPRESSION: No evidence of pulmonary embolism. 4.4 mm and 3.7 mm noncalcified nodule seen in the right lung as described. Twelve-month follow-up recommended. Electronically Signed: Mario Doss MD at 14:47 EDT ,
--- NOTE | 2023-08-28 13:44 | EX.ED.DYSGE1 ---
HPI History of Present Illness Chief Complaint: Palpitations Detail of Chief Complaint: Fast heart rate Informant: patient and family Onset/Context/Timing Onset: Today and Hours Context: Sudden Onset Timing: Continuous Quality: Apple Watch warned patient she has a fast heart rate, 153 Location: Cardiac Current Severity: Moderate Maximum Severity: Severe Worsened by: Nothing Relieved by: Nothing Associated Symptoms Associated Symptoms: Shortness of breath and right lower extremity pain Narrative Narrative: Patient is a 47-year-old woman. Patient has history of MTF HT. She took aspirin during . She is on no antithrombotic or anticoagulant this time. She denies history of prior DVT or PE. She had a long distance trip to [place] to go to her son's graduation. While sitting at around noon Apple watch sent a warning to her that her heart rate was rapid. Reviewed the heart report. Patient's heart rate became fast around 1212 30. Rate has been between 123 and 153. She denies black or maroon stool. She denies any other complaints. Prior similar symptoms: No Recent Illness/Hospitalization: No PFSH PFS Medical History Essential hypertension Hypertriglyceridemia Mixed hyperlipidemia ALISA (obstructive sleep apnea) Home Medications bupropion HCl 100 mg tablet 100 mg PO DAILY 06/30/22 [History Last Taken Unknown] lisinopril 20 mg tablet 20 mg PO DAILY 06/30/22 [History Last Taken Unknown] metoprolol succinate 100 mg tablet,extended release 24 hr 200 mg PO DAILY 06/30/22 [History Last Taken Unknown] trazodone 100 mg tablet 150 mg PO QHS 06/30/22 [History Last Taken Unknown] venlafaxine 75 mg tablet 225 mg PO DAILY 08/23/22 [History Last Taken Unknown] amlodipine 5 mg tablet 5 mg PO DAILY #90 tabs 10/04/22 [Rx Last Taken Unknown] benzonatate 200 mg capsule 200 mg PO TID PRN cough #14 caps 03/17/23 [Rx Last Taken Unknown] dexamethasone 6 mg tablet 6 mg PO DAILY #5 tabs 03/17/23 [Rx Last Taken Unknown] icosapent ethyl 1 gram capsule (Vascepa) 2 g (2 x 1 gram) PO BID #120 caps 08/11/23 [Rx Last Taken Unknown] Allergy/AdvReac Type Severity Reaction Status Date / Time No Known Allergies Allergy Verified 08/28/23 14:02 Family History Father Hyperlipemia Grandmother Diabetes Grandfather Heart disease Surgical History History of dilatation and curettage History of hysterectomy History of tonsillectomy and adenoidectomy Social History household members: spouse Smoking Status: Never smoker alcohol intake: current details: occasional substance use type: does not use caffeine: Yes Type: carbonated beverages Number of servings: 2 and coffee Number of servings: 2 ROS ROS ED Constitutional Constitutional ED: Reports other Details: Patient states she became warm when this started. 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 ; Denies chills, fever(s), subjective or sweats Eyes Eyes: Denies blurry vision, change in vision or diplopia ENT ENT ED: Denies ear pain, rhinorrhea or sore throat Cardiovascular Cardiovascular: Reports palpitations and racing heartbeat; Denies chest pain, orthopnea or paroxysmal nocturnal dyspnea Respiratory/Chest Respiratory/Chest: Reports dyspnea; Denies cough, orthopnea or paroxysmal nocturnal dyspnea Gastrointestinal Gastrointestinal: Denies abdominal pain, nausea or vomiting Musculoskeletal Musculoskeletal: Denies arthralgias, back pain or myalgias Integumentary Denies rash Neurologic Neurologic: Denies paresthesias Hematologic/Lymphatic Hematologic/Lymphatic: Reports systems reviewed and no addt'l complaints, except as documented EXAM Physical Exam Const Vital Signs: 08/28/23 13:14 08/28/23 14:04 08/28/23 14:13 Temperature 97.1 F L Temperature Source Temporal Pulse Rate 123 H 112 H Respiratory Rate 20 H 24 H Respiratory Effort Normal Non-Labored Respiratory Pattern Tachypnea Blood Pressure 172/105 H 146/99 H Blood Pressure Mean 127 114 Pulse Ox 98 97 Oxygen Delivery Method Room Air Room Air Positive well nourished, well developed and obese General Appearance ED: well developed and NAD; Negative for pallor Nutritional Appearance: obese HEENT Reports moist mucous membranes HEENT Narrative: Head is atraumatic no cephalic. Ears normal. Eyes PERRL and EOMs intact bilaterally General Eye ED: Yes pale conjunctiva and scleral icterus Neck no lymphadenopathy, supple and no JVD Chest Wall inspection of chest normal and palpation of chest normal Resp normal respiratory effort and clear to auscultation bilaterally Cardio regular rhythm, S1 normal heart sound, S2 normal heart sound and no murmurs Rate: tachycardic GI normal to inspection, nondistended, normoactive bowel sounds and non-tender Back/Spine no CVA tenderness Back/Spine Narrative: Inspection is normal. Extremity Extremity Narrative: There is tenderness along the abductor canal. There is slight swelling of the left lower extremity compared to right. Wells criteria for DVT is low. There is no discoloration, leg vein distention, palpable cords or significant asymmetry. There is approximately half centimeter difference in Size right from left. Neuro oriented x3 and CN's II-XII intact bilaterally Sensorium / Orientation: alert Psych mental status grossly normal Skin no rashes or lesions noted, no wounds and skin turgor normal Skin Narrative: Patient is tanned. There is Hamline noted. Do not believe she has Midway's disease. General Skin Exam: elasticity normal; Negative for jaundice or pallor MDM MDM MDM Narrative Medical decision making narrative: Will obtain EKG to assess rhythm. Patient has a sinus tachycardia. With recent travel, M TFH and rapid heart rate patient's moderate to high probability for PE. CTA was ordered. Lab Data Attestation: I reviewed the patient's lab results. Lab results narrative: CBC is normal. BMP is normal. Labs: Laboratory Results - last 24 hr 08/28/23 14:17 WBC 6.0 RBC 4.77 Hgb 14.1 Hct 41.1 MCV 86.2 MCH 29.6 MCHC 34.3 RDW Std Deviation 40.8 RDW Coeff of Mark 13.1 Plt Count 245 MPV 9.0 Immature Gran % (Auto) 0.200 Neut % (Auto) 53.7 Lymph % (Auto) 37.6 [place] % (Auto) 6.0 Eos % (Auto) 1.8 Baso % (Auto) 0.7 Absolute Neuts (auto) 3.3 Absolute Lymphs (auto) 2.27 Nucleated RBC % 0 Sodium 140 Potassium 3.2 L Chloride 107 Carbon Dioxide 26.0 Anion Gap 7 BUN 8 Creatinine 0.86 Est GFR (MDRD) Af Amer 90 Est GFR (MDRD) Non-Af 75 BUN/Creatinine Ratio 9.3 L Glucose 105 Calcium 9.0 Radiography Diagnostic Testing: Clinical Impression(s) from Imaging Studies Chest CTA 08/28/23 13:41 IMPRESSION: No evidence of pulmonary embolism. 4.4 mm and 3.7 mm noncalcified nodule seen in the right lung as described. Twelve-month follow-up recommended. Electronically Signed: Mario Doss MD at 14:47 EDT , EKG Initial EKG: Attestation: I personally reviewed and interpreted this EKG as follows: Interpretation: Sinus Tachycardia (Rate is 114. [place] to left. [place] interval is under 64 ms. QS duration 88 ms. QT duration 3 and 36 ms. There is evidence of LVH by voltage criteria) Discharge Plan Triage Chief Complaint: Palpitations ED Provider: Rao Cano Dx/Rx/DC Orders Clinical Impression: Sinus tachycardia, ALISA (obstructive sleep apnea), Hypertriglyceridemia, Essential hypertension, Acute dyspnea, Lung nodules Instructions: ED About Arrhythmias, ED Dyspnea, ED Pulmonary Nodule, Solitary Prescriptions: No Action lisinopril 20 mg tablet 20 mg PO DAILY bupropion HCl 100 mg tablet 100 mg PO DAILY metoprolol succinate 100 mg tablet extended release 24 hr 200 mg PO DAILY venlafaxine 75 mg tablet 225 mg PO DAILY dexamethasone 6 mg tablet 6 mg PO DAILY Qty: 5 0RF benzonatate 200 mg capsule 200 mg PO TID PRN (Reason: cough) Qty: 14 0RF trazodone 100 mg tablet 150 mg PO QHS Patient Comments: pain amlodipine 5 mg tablet 5 mg PO DAILY Qty: 90 3RF icosapent ethyl [Vascepa] 1 gram capsule 2 g PO BID Qty: 120 11RF Primary Care Provider: Jacque Carbajal Referrals: Jacque Carbajal, DO [Primary Care Provider] - 3-5 Days if not improving Activity Restrictions/Additional Instructions: 1. The CAT scan revealed 2 nodules in the right upper lobe. Recommendation is follow-up CAT scan in 12 months. 2. The cause of your rapid heart rate and shortness of breath is unknown. Disposition Disposition: Home, Self Care
[2023-08-28 14:13] VITALS: BP 146/99; PULSE 112; RESP 24; O2SAT 97
[2023-08-28 14:29] LABS: Absolute Lymphocyte Count 2.27 X10^3/uL (0.83-4.51); Absolute Neutrophil Count 3.3 X10^3/uL (2.0-7.7); Basophil# 0.04 X10^3/uL; Basophil% 0.7 % (0-1); Eosinophil# 0.11 X10^3/uL; Eosinophils% 1.8 % (0-5); Hematocrit 41.1 % (37-47); Hemoglobin 14.1 g/dL (12.0-15.0); Lymphocyte # 2.27 X10^3/ul (0.83-4.51); Lymphocyte % 37.6 % (19-41); Mean Corp Hgb Conc 34.3 g/dL (32-36); Mean Corpuscular Hgb 29.6 pg (27.0-32.0); Mean Corpuscular Volume 86.2 fL (81-99); Monocyte# 0.36 X10^3/uL; NRBC Flagged by Analyzer 0 % (0-5); Neutrophil # 3.25 X10^3/uL (2.7-7.7); Neutrophil % 53.7 % (47-70); Platelet Count 245 K/mm3 (150-450); RBC Distribution Width CV 13.1 % (11.6-14.6); RBC Distribution Width SD 40.8 fl (35.1-43.9); Red Blood Count 4.77 M/mm3 (4.2-5.4)
[2023-08-28 14:34] LABS: Anion Gap 7 (5-15); BUN 8 mg/dL (7-18); BUN/Creat Ratio 9.3 RATIO (10-20); Chloride 107 mmol/L (98-107); Creatinine, Serum 0.86 mg/dL (0.55-1.02); EST Glomerular Filtration Rate 75 mL/min (>60); Est Glom Filt Rate - Afr Amer 90 mL/min (>60); Glucose 105 mg/dL (74-106); Potassium 3.2 mmol/L (3.5-5.1); Sodium Level 140 mmol/L (136-145)
[2023-08-28 15:00] VITALS: BP 146/83; PULSE 103; RESP 16; TEMP 36.6; O2SAT 98
== END 2023-08-28 15:49 | disposition home or self-care (01) ==
PROVIDERS: Emergency Provider Emergency Medicine; PCP Family Medicine; Visit Provider Emergency Medicine
DX: R00.0 Tachycardia, unspecified (principal); R06.00 Dyspnea, unspecified; R91.8 Other nonspecific abnormal finding of lung field; E78.1 Pure hyperglyceridemia; G47.33 Obstructive sleep apnea (adult) (pediatric); I10 Essential (primary) hypertension; E78.2 Mixed hyperlipidemia; Z79.899 Other long term (current) drug therapy
CPT/HCPCS: 71275; 80048; 85025; 93005; 99284; Q9967; A4216

== ENCOUNTER → 2023-09-04 | Outpatient (CLI) | payer OTHER, SELFPAY ==
[2023-09-04 08:34] LABS: Hematocrit 41.8 % (37-47); Hemoglobin 13.8 g/dL (12.0-15.0); Mean Corpuscular Hgb 29.3 pg (27.0-32.0); Mean Corpuscular Volume 88.7 fL (81-99); Mean Platelet Vol. 9.5 fl (6.2-12.0); Platelet Count 248 K/mm3 (150-450); RBC Distribution Width CV 13.3 % (11.6-14.6); RBC Distribution Width SD 43.2 fl (35.1-43.9); Red Blood Count 4.71 M/mm3 (4.2-5.4); White Blood Count 6.4 K/mm3 (4.4-11.0)
[2023-09-04 09:59] LABS: ALB/GLOB Ratio 1.1 RATIO (0.9-2.4); AST(SGOT) 22 U/L (15-37); Alanine Aminotransfer ALT/SGPT 30 U/L (13-56); Albumin, Serum 3.4 g/dL (3.2-5.0); Alkaline Phosphatase 67 U/L (45-117); Anion Gap 4 (5-15); BUN 13 mg/dL (7-18); BUN/Creat Ratio 12.3 RATIO (10-20); Calcium,Total 8.9 mg/dL (8.5-10.1); Chloride 105 mmol/L (98-107); Cholesterol 169 mg/dL (200); Creatinine, Serum 1.06 mg/dL (0.55-1.02); EST Glomerular Filtration Rate 58 mL/min (>60); Est Glom Filt Rate - Afr Amer 71 mL/min (>60); Ferritin 75 ng/mL (8-252); Globulin 3.1 g/dL (2.2-4.2); Glucose 116 mg/dL (74-106); High Density Lipoprotein 38 mg/dL; Iron 79 ug/dL (50-170); Iron Binding Capacity,Total 295 ug/dL (250-450); PERCENT IRON SATURATION 26.8 % (15.0-55.0); Potassium 3.8 mmol/L (3.5-5.1); Protein, Total 6.5 g/dL (6.4-8.2); Sodium Level 138 mmol/L (136-145); Thyroid Stim Hormone (TSH) 1.88 uIU/mL (0.358-3.74); Triglycerides 179 mg/dL; Very Low Density Lipoprotein 36 mg/dL (5-40)
[2023-09-04 14:17] LABS: Hemoglobin A1c 5.4 % (3.8-5.6)
[2023-09-04 19:18] LABS: Vitamin B12 186 pg/mL (211-911); Vitamin D,25 Hydroxy 140.7 ng/mL
== END | disposition home or self-care (01) ==
LOC: LAB 07:19
PROVIDERS: PCP Family Medicine; Referring Provider Physician Assistant; Visit Provider Physician Assistant
DX: Z79.899 Other long term (current) drug therapy (principal)
CPT/HCPCS: 36415; 80053; 80061; 82306; 82607; 82728; 82746; 83036; 83540; 83550; 84443; 85027

== ENCOUNTER → 2023-11-08 | Outpatient (CLI) | payer OTHER, SELFPAY ==
[2023-11-08 09:43] LABS: Hematocrit 42.3 % (37-47); Hemoglobin 14.1 g/dL (12.0-15.0); Mean Corp Hgb Conc 33.3 g/dL (32-36); Mean Corpuscular Hgb 29.3 pg (27.0-32.0); Mean Corpuscular Volume 87.8 fL (81-99); Mean Platelet Vol. 9.4 fl (6.2-12.0); Platelet Count 252 K/mm3 (150-450); RBC Distribution Width CV 13.2 % (11.6-14.6); Red Blood Count 4.82 M/mm3 (4.2-5.4); White Blood Count 6.9 K/mm3 (4.4-11.0)
[2023-11-08 09:58] LABS: Hemoglobin A1c 5.4 % (3.8-5.6)
[2023-11-08 10:05] LABS: Anion Gap 5 (5-15); BUN 14 mg/dL (7-18); Calcium,Total 9.1 mg/dL (8.5-10.1); Chloride 106 mmol/L (98-107); EST Glomerular Filtration Rate 63 mL/min (>60); Est Glom Filt Rate - Afr Amer 76 mL/min (>60); Glucose 118 mg/dL (74-106); Potassium 3.6 mmol/L (3.5-5.1); Sodium Level 139 mmol/L (136-145)
[2023-11-08 10:23] LABS: Vitamin D,25 Hydroxy 92.8 ng/mL
== END | disposition home or self-care (01) ==
PROVIDERS: PCP Family Medicine
DX: R79.9 Abnormal finding of blood chemistry, unspecified (principal); Z79.899 Other long term (current) drug therapy
CPT/HCPCS: 36415; 80048; 82306; 83036; 85027

== ENCOUNTER 2023-12-22 16:00 | Outpatient (RCR) | payer OTHER, SELFPAY ==
--- NOTE | 2023-11-23 14:41 | HP.PTEVAL ---
Patient's Visit Information Visit Information Visit Information: MARCUS TAVARES is a 48 year old F referred to Physical Therapy by Dr. Jasper Ocasio DO with a diagnosis of Right Knee Pain. Date of Evaluation: 11/23/23 Physical Therapist: Alicia Upton DPT Visit Plan Frequency: 2x /Week Duration: 4 Weeks Plan: Focus on LE and core strength/stabilization, proprioception and eccentric as tolerated- US as modality of choice HEP Given IE: Quad set, SLR, clams, hip extn, sit to stand, single leg stance Subjective Subjective: Patient reports last January- she got a cortisone injection in March- it helped a lot - no x-rays taken-100% better- it stayed better until about a month ago then it started hurting again. Then went to see Dr. Lazo and he took x-rays which were negative and offered a cortisone injection but she declined and sent her to PT. The pain is located on top of the knee- does not radiate. Describes the pain as dull and achy. The pain comes and goes. Best: 0/10 Eases: sitting. Agg: pushing on it, going down stairs, getting out of the car Worst: 5/10. No N.T in the toes. No hip pain. No change depening on shoes- no orthotics. No issues with knees. Work: [employer]- not back yet. Sleep: not disturbed. She feels that the knee is just staying the same. She walks for exercise and goes so [place] some to hike. PMHx/Meds: no change since saw ortho Objective Objective: Posture: forward head, rounded shoulders- can correct with verbal cues Gait: no deviation noted Stairs: asc/desc 8 recip- poor control with descent HR/TR: able SLS: 5 sec mild increase in sway ROM: 0-125 degrees Strength: Core: fair, Hip: 4/5 throughout, Knee: Flexion:29 Extn: 31 Ankle: 5/5 Flex: HS: moderate Gastroc: moderate Palpation: not tender to touch Balance/Special Test Scores Lower Extremity Functional Score: 77 Goals Goal 1:: Patient will be I with HEP and progression Goal Time Frame: 4-6 Weeks Goal 2:: Patient will desc stairs recip without pain Goal Time Frame: 4-6 Weeks Goal 3:: Patient will report 80% improvement Goal Time Frame: 4-6 Weeks Rehabilitation Potential Physical Therapy Diagnosis: Patient presents with hypomobility- she has decreased LE and core strength/stabilization, proprioception and muscular endurance leading to increased pain with ADL's Rehabilitation Potential: Good Anticipated Interventions Patient/Client Instruction: Educate patient on: Benefits of Fitness Program Therapeutic Exercise to Include: Strength training, Endurance training, Balance training, Coordination, Agility training, Body mechanics, Postural training, Flexibilty training, Gait and locomotor training, Neuromotor development, Dynamic Lumbar Stabilization and Scapular Strength/Stabilization For the Purpose of:: To improve muscle performance and motor function Manual Therapy Techniques to Include: Soft tissue mobilization TENS: Yes Cryotherapy (ice pack, ice massage): Yes Thermo therapy (hot pack): Yes Ultrasound (thermal/non thermal): Yes For the Purpose of:: To improve muscle performance and motor function Text: Thank you for the opportunity to evaluate your patient. For Medicare and Medicare HMO plans, please review the plan of care and approve it. It will need to be FAXED BACK to us at [phone] for Medicare purposes. For Medicare only, by signing this I certify the plan of care. Please let me know if there are questions or concerns regarding this plan of care. Physician Signature: Date:
--- NOTE | 2024-02-16 09:23 | HP.PT.NRP ---
Patient Information Patient Information: MARCUS TAVARES was seen in my office for initial evaluation on 11/23/23. The following Plan of Care was established for this patient: POC Established Initial Frequency: 2x /Week Initial Duration: 4 Weeks Anticipated Interventions Patient/Client Instruction: Educate patient on: Benefits of Fitness Program Therapeutic Exercise to Include: Strength training, Endurance training, Balance training, Coordination, Agility training, Body mechanics, Postural training, Flexibilty training, Gait and locomotor training, Neuromotor development, Dynamic Lumbar Stabilization and Scapular Strength/Stabilization For the Purpose of:: To improve muscle performance and motor function Manual Therapy Techniques to Include: Soft tissue mobilization TENS: Yes Cryotherapy (ice pack, ice massage): Yes Thermo therapy (hot pack): Yes Ultrasound (thermal/non thermal): Yes For the Purpose of:: To improve muscle performance and motor function Last Seen Last Seen: This patient was last seen in our office . Pertinent comments regarding their Physical therapy will appear below: Pt has not attended PT in over 30 days, appropriate to be d/c from PT and return to MD as needed. At this point I will be discontinuing this patient from physical therapy. I would be happy to see this patient again in the future if found appropriate by the physician. Thank you! Alicia Upton, GREYT Balance/Gait/Functional tests Balance/Special Test Scores Lower Extremity Functional Score: 77
== END 2023-12-22 19:00 | disposition home or self-care (01) ==
LOC: PT 16:00
PROVIDERS: PCP Family Medicine; Referring Provider Orthopaedic Surgery; Visit Provider Orthopaedic Surgery
DX: M25.561 Pain in right knee (principal)
CPT/HCPCS: 97110; 97162; 97530

== ENCOUNTER → 2024-01-22 | Outpatient (CLI) | payer OTHER, SELFPAY ==
--- NOTE | 2024-01-22 16:02 | BI_ITS ---
MAMMOGRAPHY - BILATERAL SCREENING REASON FOR EXAM: Female, 48 years old. Routine annual screening examination. PERTINENT HISTORY: Aunt with breast cancer. Prior left breast biopsy. TECHNIQUE: Digital bilateral breast bo (3D mammographic acquisition) in the CC and MLO projections. 2-D mediolateral oblique (MLO) and craniocaudad (CC) views of both breasts were obtained. CAD: Full Field Digital Mammography with Computer Added Detection was performed. COMPARISON: Comparison is made with prior outside examination dated March 25, 2022. FINDINGS: Breast Composition: The breasts are heterogeneously dense, which may obscure small masses. There are no dominant masses or suspicious calcifications. A tissue clip marker is is seen in the anterior upper lateral aspect of the left breast. No other significant abnormalities are identified. There has been no significant change since the prior study. BI/SCRN MAMM (CAD)W/BO BILAT IMPRESSION: Stable bilateral screening mammogram. Yearly follow-up mammogram recommended. (A) ASSESSMENT CATEGORY: BIRADS Category 2: Benign. A letter regarding these results will be sent to the patient by the facility within 30 days. Approximately 10% of breast cancers are not detected by mammography. A normal mammogram should not delay biopsy of a clinically suspicious abnormality. [id number] Electronically Signed: Mario Doss MD at 13:43 EDT ,
== END | disposition home or self-care (01) ==
LOC: OPBI 16:02
PROVIDERS: PCP Family Medicine; Referring Provider Internal Medicine; Visit Provider Internal Medicine
DX: Z12.31 Encounter for screening mammogram for malignant neoplasm of breast (principal)
CPT/HCPCS: 77063; 77067

== ENCOUNTER → 2025-01-23 | Outpatient (CLI) | payer OTHER, SELFPAY ==
--- NOTE | 2025-01-23 16:15 | BI_ITS ---
EXAM: SCRN MAMM (CAD)W/BO BILAT DATE: 01/23/2025 CLINICAL HISTORY: F, Age 49 y/o , SCREENING TECHNIQUE: Procedure Code: [id number] Modality: MG Procedure: SCRN MAMM (CAD)W/BO BILAT COMPARISON: Prior exam(s) dated 01/22/2024, 03/25/2022, 06/15/2018. FINDINGS: TISSUE DENSITY: There are scattered areas of fibroglandular density. Bilateral Breast Mammographic Findings: No significant masses, calcifications or other abnormalities are identified. BI/SCRN MAMM (CAD)W/BO BILAT IMPRESSION: There is no mammographic evidence of malignancy. OVERALL FINAL ASSESSMENT BI-RADS 1: NEGATIVE. RECOMMENDATION: Routine annual follow-up in 1 Year Additional Recommendation none A letter with findings and recommendations will be mailed to the patient. Reading Location: [id number]
== END | disposition home or self-care (01) ==
LOC: OPBI 15:59
PROVIDERS: PCP Internal Medicine; Referring Provider Internal Medicine; Visit Provider Internal Medicine
DX: Z12.31 Encounter for screening mammogram for malignant neoplasm of breast (principal)
CPT/HCPCS: 77063; 77067